=== PATIENT | male | born 1960 | race Caucasian/White ===

== ENCOUNTER 2021-12-19 10:23 | Outpatient (CLI) | payer OTHER, SELFPAY ==
--- NOTE | ~2021-12-19 | US_ITS ---
EXAMINATION: US retroperitoneal comp DATE: 12/19/2021 11:21 INDICATION: Proteinuria TECHNIQUE: Multiple grayscale and Doppler ultrasound images of the kidneys were obtained. COMPARISON: None. FINDINGS: The right kidney measures 12.7 x 5.0 x 4.9 cm. The left kidney measures 13.3 x 6.0 x 5.5 cm . The kidneys demonstrate normal parenchymal echogenicity. There is no hydronephrosis. The bladder is normal. Cholelithiasis is incidentally noted. IMPRESSION: 1. Normal kidneys without hydronephrosis. 2. Cholelithiasis. Reviewed, dictated and finalized at location B. E ASSESSOR
== END 2021-12-19 10:24 | disposition home or self-care (01) ==
LOC: CHSIMG 10:25
PROVIDERS: PCP Internal Medicine; Visit Provider Internal Medicine Nephrology
DX: R80.9 Proteinuria, unspecified (principal)
CPT/HCPCS: 76770

== ENCOUNTER 2022-01-18 09:07 | Emergency (ER) | payer OTHER, SELFPAY ==
--- NOTE | ~2022-01-18 | XR_ITS ---
EXAMINATION: XR hand LT min 3V DATE: 01/18/2022 09:30 INDICATION: Nail wound to the ulnar side of the prominent than the left hand. TECHNIQUE: Posteroanterior, oblique and lateral views of the left hand were obtained. COMPARISON: None. FINDINGS: Bone alignment is normal. No fracture. Mild polyarticular osteoarthritis at the radial aspect of the carpus and multiple interphalangeal joints with distal predominance. Small heterotopic ossicles versu s degenerative loose bodies near the ulnar styloid process and proximal aspect of the distal radiouln ar joint. No soft tissue gas or radiopaque foreign bodies. IMPRESSION: 1. Mild polyarticular osteoarthritis with typical distribution of the left hand. No acute osseous abn ormality or radiopaque foreign bodies. Reviewed, dictated and finalized at location A. NE MACHINIST IMPRESSION: 1. Mild polyarticular osteoarthritis with typical distribution of the left hand . No acute osseous abnormality or radiopaque foreign bodies.
[2022-01-18 09:15] VITALS: BP 160/98; PULSE 88; RESP 18; TEMP 36.8; O2SAT 98
[2022-01-18] MEDS: TETANUS,DIPHTHERIA,AC PERTUSSIS ADULT 0.5 ML (ADACEL) IM (09:44)
--- NOTE | 2022-01-18 09:49 | WC.ED.TRAUMA ---
HPI - Trauma General Chief Complaint: Extremity Injury, Upper Stated Complaint: L hand pain and swelling Time Seen by Provider: 01/18/22 09:10 Source: patient Mode of arrival: ambulatory Limitations: no limitations History of Present Illness HPI narrative: this is a 61-year-old gentleman with history of diabetes well during some home improvement nail went through his left palmar surface of his hand causing a puncture wound there is an area of erythema warmth mildly tender and swollen, there is no fever chills currently no drainage. MD complaint: injury Onset (ago): week(s) Loss of Consciousness: no Severity: mild Related Data Home Medications Medication Instructions Recorded Confirmed duloxetine 60 mg capsule,delayed 60 mg PO DAILY 01/18/22 01/18/22 release lisinopril 20 1 tablet PO BID 01/18/22 01/18/22 mg-hydrochlorothiazide 12.5 mg tablet metformin 500 mg tablet,extended 500 mg PO BID 01/18/22 01/18/22 release 24 hr pantoprazole 20 mg tablet,delayed 20 mg PO DAILY 01/18/22 01/18/22 release rosuvastatin 40 mg tablet 20 mg PO DAILY 01/18/22 01/18/22 verapamil 180 mg tablet,extended 180 mg PO BID 01/18/22 01/18/22 release Allergies Allergy/AdvReac Type Severity Reaction Status Date / Time Penicillins Allergy Rash Verified 01/18/22 09:25 Sulfa (Sulfonamide Allergy Rash Verified 01/18/22 09:25 Antibiotics) Review of Systems Review of Systems: All systems reviewed & are unremarkable except as noted in HPI and below PMFSH Past Medical History Medical History Diabetes mellitus Exam Const: General: healthy appearing and no acute distress Nutritional Appearance: well nourished Orientation/consciousness: patient oriented x3 Limitations: no limitations HENMT: Head: normal to inspection Eyes: Conjunctivae: conjunctivae normal Pupils: Equal, round and reactive pupils present EOM: EOMs intact bilaterally Neck: Neck: normal visual inspection Chest: Chest palpation & inspection: normal inspection of the chest Resp: Effort & Inspection: normal respiratory effort Cardio: Rate: regular rate Rhythm: regular rhythm GI: GI Palp: Yes Soft to palpation Urinary Catheter: Urinary Catheter: patent and draining Back/Spine/Pelvis: Back: no CVA tenderness Skin: General skin exam: normal color Wounds: wounds noted Neuro: General: patient oriented x3 Cranial nerves: Yes Nystagmus not present Extrem: General: normal to inspection Psych: Mental Status: mental status grossly normal Affect: normal affect Course Course Emergency Course: x-ray performed shows no acute abnormalities, patient updated with tetanus and will send antibiotics to patient's pharmacy. Vital Signs Vital signs: Vital Signs Temperature 36.8 C 01/18/22 09:15 Pulse Rate 88 01/18/22 09:15 Respiratory Rate 18 01/18/22 09:15 Blood Pressure 160/98 H 01/18/22 09:15 Pulse Oximetry 98 01/18/22 09:15 Oxygen Delivery Room Air 01/18/22 09:15 Temperature 36.8 C 01/18/22 09:15 Pulse Rate 88 01/18/22 09:15 Respiratory Rate 18 01/18/22 09:15 Blood Pressure 160/98 H 01/18/22 09:15 Pulse Oximetry 98 01/18/22 09:15 Oxygen Delivery Room Air 01/18/22 09:15 Critical Care Time Critical Care Time Critical Care Time: No Discharge Plan Discharge Clinical Impression: Puncture wound Cellulitis Qualifiers: Site of cellulitis: extremity Site of cellulitis of extremity: upper extremity Laterality: left Qualified Code(s): L03.114 - Cellulitis of left upper limb Patient Disposition: Home, Self-Care Condition: Stable Instructions: Antibiotic Form, Puncture Wound (ED), Cellulitis (ED) Additional Instructions: take medicine as prescribed, can use Tylenol or Motrin for inflammation and pain, follow-up primary care physician if symptoms persist or worsen. Prescriptions: New clindamycin HCl 300 mg capsule 300 m
[2022-01-18 10:18] VITALS: BP 158/88; PULSE 84; RESP 18; TEMP 36.9; O2SAT 98
== END 2022-01-18 10:25 | disposition home or self-care (01) ==
PROVIDERS: Emergency Provider Emergency Medicine; PCP Internal Medicine
DX: S61.432A Puncture wound without foreign body of left hand, initial encounter (principal); L03.114 Cellulitis of left upper limb; W45.0XXA Nail entering through skin, initial encounter
CPT/HCPCS: 73130; 90471; 90715; 99283

== ENCOUNTER 2022-01-27 14:53 | Day surgery (SDC) | payer OTHER, SELFPAY ==
[2022-01-27] VITALS (9 sets, daily range): BP systolic 130–157; BP diastolic 93–104; PULSE 84–95; RESP 12–18; TEMP 36.1–36.7; O2SAT 91–99; BMI 30.9
--- NOTE | 2022-01-27 14:09 | PC.NURSE ---
Report to the Outpatient Waiting Room, entrance under the green pavilion located off [facility], at time 1500 on date 01/27/22. Planned Procedure Time: 1700. Time changes happen often and if your time is changed the preop area will call you the afternoon before. - You and your visitor will be asked to self-screen and do not enter if you have any COVID symptoms. - Only one visitor is requested with a max of two and NO children visitors are allowed at this time. - The patient visitor may be requested to leave or wait in car when not with patient due to distancing restrictions. - A mask is REQUIRED within the hospital. Patients may have clear liquids (water, carbonated beverages, clear teas, apple juice) until 3 hours prior to surgery with a maximum of 20 ounces. - No food from midnight until time of surgery Take the following medications with a SIP of water the morning of surgery: ALREADY TOOK AM MEDS Medications to discontinue per physician: N/A Date to take last dose: N/A Please no make-up, nail thai, hairspray, perfume, deodorant, or body powder the day of surgery. No jewelry (including any body piercings) or valuables the day of surgery, leave them at home. Please take a shower or bath the night before, or the morning of, surgery with an antibacterial soap. Wear comfortable, loose fitting clothing. - Jewelry must be removed prior to entering the operating room. Rings and piercings that are not removed may be cut off. - The hospital will not accept responsibility for valuables. - Please leave all valuables, including medications, at home the day of surgery. If you are going home after surgery, a licensed owner operator tanker truck driver must drive you home. - NO public transportation without another adult if you receive anesthesia. - We recommend that an adult stay with you for 24 hours following discharge. - We also recommend that you do not drive, make important decision, drink alcoholic beverages, or take any drugs that were not prescribed by your health care provider for at least 24 hours after your discharge time. Follow any additional instructions given to you from your surgeon. If you or anyone in your household have experienced Covid symptoms in the past week, please notify your surgeon or the nurse liaison at the phone number below for possible testing. Telephone instructions given to PT - AMADOU DAVID and asked if any additional questions and then verbalized understanding. Patient advised to call surgeon office or pre surgery nurse liaison [phone] if any additional questions.
--- NOTE | 2022-01-27 14:20 | ECG_ITS ---
Measurements Intervals Fosters Rate: 85 P: 46 NE: 168 QRS: 2 QRSD: 98 T: 43 QT: 369 QTc: 441 Interpretive Statements SINUS RHYTHM NORMAL ECG NO PREVIOUS ECG AVAILABLE FOR COMPARISON Electronically Signed On 01-27-2022 17:21:18 ENTERTAINMENT USHER by Randy Wisdom M.D.
[2022-01-27] MEDS: LACTATED RINGERS 1,000 ML 30 ML IV CONT ×2 (15:30→19:05)
[2022-01-27 15:42] LABS: Glucose Point of Care 107 mg/dl (65-105)
--- NOTE | 2022-01-27 15:47 | P.PNAN_ITS ---
Anes - Initial Pre Proc Eval Procedure: Operation Date: 01/27/22 17:00 Proposed Procedures p Incision and Drainage Abscess Left Hand - Narciso Galloway MD Date/Time: 01/27/22 15:47 Surgeon: Narciso Galloway MD Pre Op Diagnosis: Lt Hand Abscess Patient Data Age: 61 Gender: M Height: 1.85 m Weight: 106.14 kg Allergies Allergy/AdvReac Type Severity Reaction Status Date / Time Penicillins Allergy Rash Verified 01/27/22 14:01 Sulfa (Sulfonamide Allergy Rash Verified 01/27/22 14:01 Antibiotics) Home Medications Medication Instructions Recorded Confirmed Type clindamycin HCl 300 mg capsule 300 mg PO Q6H 10 days #40 caps 01/18/22 01/27/22 Rx duloxetine 60 mg capsule,delayed 60 mg PO DAILY 01/18/22 01/27/22 History release lisinopril 20 1 tablet PO BID 01/18/22 01/27/22 History mg-hydrochlorothiazide 12.5 mg tablet metformin 500 mg tablet,extended 500 mg PO BID 01/18/22 01/27/22 History release 24 hr pantoprazole 20 mg tablet,delayed 20 mg PO DAILY 01/18/22 01/27/22 History release rosuvastatin 40 mg tablet 20 mg PO DAILY 01/18/22 01/27/22 History verapamil 180 mg tablet,extended 180 mg PO BID 01/18/22 01/27/22 History release multivitamin 1 tablet PO DAILY 01/27/22 01/27/22 History Laboratory Tests 01/27/22 15:35 POC Capillary Glucose 107 mg/dl H mg/dl (65-105) Patient hx anesthesia problems: none Family hx anesthesia problems: none Results Review: All pre-operative results and documents have been reviewed as part of the pre- operative evaluation. [facility] Past Medical History Medical History (Updated 01/27/22 @ 15:47 by Kory Cabello MD) Diabetes mellitus HTN (hypertension) Hyperlipidemia Social History Social History Smoking packs per day: 1.5 Smoking cigarettes per day: 30.0 Years smoked: 42 Smoking pack-years: 63.00 Smoking status: Former smoker Tobacco type: cigarettes Smoking end date: 02/09/15 Alcohol intake: never Substance use: never Substance use type: does not use Living arrangements: with family Spiritual care concerns: No Anes - Eval Final PreProcedure Day of Procedure 01/27/22 15:47 Patient weight: obese Heart: regular rate and rhythm Lungs: clear to auscultation Airway: Mallampati scale class II Last oral intake: >/= 8 hours ASA classification: III Emergent: yes Anesthetic plan: proceed Anesthesia type and monitoring: general LMA and standard monitoring Results Review: All pre-operative results and documents have been reviewed as part of the pre- operative evaluation. Informed Consent: The patient's anesthetic plan and its attendant risks and benefits were discussed with the patient/family/POA. Questions were solicited and answers provided to the satisfaction of the patient/family/POA.
--- NOTE | 2022-01-27 16:02 | P.HP_ITS ---
H&P: [facility] History of Present Illness Date/Time: 01/27/22 16:02 Chief Complaint: abscess of the left hand Narrative: Mr. Ugalde is 61 he is a diabetic patient of Dr. Han who sustained a puncture wound from a nail in the hypothenar eminence of left hand about two weeks ago.. He did not seek medical attention initially. The hand worsened. He was seen in the [facility] Emergency room on 01/18/2022 at which time he was started on clindamycin. Dr Han switched this to Levaquin and Doxycycline a few days later based on culture growing Strep. Referred to or 01/27/22 with lymphangitis and draining abscess of the hypothenar mass. Also tolerated Rocephin today in [place] without ill effect. Review of Systems Review of Systems: Does not have peripheral neuropathy he says. Has hyperlipidemia and hypertension. All systems reviewed & are unremarkable except as noted in HPI and below Constitutional: Constitutional: Reports as per HPI [facility] Past Medical History Medical History Diabetes mellitus HTN (hypertension) Hyperlipidemia Social History Social History Smoking packs per day: 1.5 Smoking cigarettes per day: 30.0 Years smoked: 42 Smoking pack-years: 63.00 Smoking status: Former smoker Tobacco type: cigarettes Smoking end date: 02/09/15 Alcohol intake: never Substance use: never Substance use type: does not use Living arrangements: with family Spiritual care concerns: No Meds Home Medications and Allergies Home Medications Medication Instructions Recorded Confirmed Type clindamycin HCl 300 mg capsule 300 mg PO Q6H 10 days #40 caps 01/18/22 01/27/22 Rx duloxetine 60 mg capsule,delayed 60 mg PO DAILY 01/18/22 01/27/22 History release lisinopril 20 1 tablet PO BID 01/18/22 01/27/22 History mg-hydrochlorothiazide 12.5 mg tablet metformin 500 mg tablet,extended 500 mg PO BID 01/18/22 01/27/22 History release 24 hr pantoprazole 20 mg tablet,delayed 20 mg PO DAILY 01/18/22 01/27/22 History release rosuvastatin 40 mg tablet 20 mg PO DAILY 01/18/22 01/27/22 History verapamil 180 mg tablet,extended 180 mg PO BID 01/18/22 01/27/22 History release multivitamin 1 tablet PO DAILY 01/27/22 01/27/22 History Allergies Allergy/AdvReac Type Severity Reaction Status Date / Time Penicillins Allergy Rash Verified 01/27/22 15:58 Sulfa (Sulfonamide Allergy Rash Verified 01/27/22 15:58 Antibiotics) Exam Const: General: cooperative Extrem: Other: erythema extending to mid volar forearm. Purulent drainage from the hypothenar mass. Has full unrestrained AROM of fingers. Swollen at volar wrist.. H&P: Results Labs Labs: Strep in the wound. Assessment and Plan Assessment and plan (1) Diabetes mellitus: Code(s): E11.9 - Type 2 diabetes mellitus without complications Status: Acute (2) Abscess of left hand excluding fingers and thumb: Code(s): L02.512 - Cutaneous abscess of left hand Status: Acute Assessment and Plan: I&D of left hand in the OR under general anesthesi today.
[2022-01-27 16:18] LABS: Anion Gap 8 mmol/L (8-16); Blood Urea Nitrogen 17 mg/dL (9-20); Calcium 9.5 mg/dL (8.4-10.2); Carbon Dioxide 30 mmol/L (22-30); Chloride 99 mmol/L (98-107); Estimated CRCL calculation 95 ml/min; Estimated Glomerular Filt Rate > 60; Glucose 106 mg/dL (65-110); Potassium 3.9 mmol/L (3.4-5.0); Sodium 137 mmol/L (137-145)
--- NOTE | 2022-01-27 17:14 | WPDHPUPDATE1 ---
History and Physical Update Update Date/Time: 01/27/22 17:14 History and Physical has been reviewed, including an updated exam of the patient. There are NO changes in the patient's condition. Risks, benefits, and alternatives have been discussed and questions answered. Patient agrees to proceed with procedure.
[2022-01-27 19:26] LABS: Glucose Point of Care 172 mg/dl (65-105)
[2022-01-27] MEDS: fentaNYL CITRATE INJ (*CRX) 100 MCG/2 ML VIAL 25 MCG IV PUSH ×4 (19:30→20:17)
[2022-01-27 19:53] LABS: Influenza A QL RT-PCR Negative (Negative); Influenza B QL RT-PCR Negative (Negative); SARS-CoV-2 RNA PCR Negative
--- NOTE | 2022-01-27 20:00 | P.OP_ITS ---
Procedure Note - Detailed Date of Procedure 01/28/22 Pre-op Diagnosis Lt Hand Abscess Post-op Diagnosis Same Procedure Performed Incision and drainage of superficial and deep fascial abscess of the left palm and wrist, 10 x 4 cm. with excisional debridement of nonviable skin and subcutaneous tissue. Surgeon Narciso Galloway MD Anesthesia General Indications 2-week-old infected puncture wound to the left hand in a diabetic Findings Sub fascial abscess Description of Procedure The left hand was marked in the holding area. The patient had no further questions. He was taken to the operating room where he was placed supine on the operating table and administered general endotracheal anesthesia. Left upper extremity was prepped and draped in usual fashion. Time-out was held and confirmed. The site was carefully examined for placement of incisions. The tourniquet was inflated to 250 mmHg. An ulnar paramedian incision was made 1st to unroof the areas of greatest purulence. This then led me to cross the palmar wrist crease and extend in a Chemo fashion proximally on to the distal 20% of the forearm.. Subsequent incision was extended distally along the ulnar hypothenar eminence toward the base of the 5th finger. A counter incision near the dorsal mid metacarpal was made with a hemostat and knife to irrigate and drain the most ulnar intrinsics. A looped Alan drain was secured there. Fol lowing the pus, the flexor retinaculum was opened to expose the ulnar nerve and artery.. The the common digital branches were exposed. No arteries were veins were divided. The carpal ligament was opened with the finding of no pus there. All areas of pus were exposed and irrigated. Phlegmonous tissue was excised in multiple areas. Copious irrigation was performed. The tourniquet was released and a few small mostly subcutaneous bleeders were cauterized. Some pressure was held on the wound for a few minutes until bleeding stopped. The dressing comprised Mepilex Ag pad cut to shape for the wound and gauze with Kerlix roll to cover. Estimated Blood Loss -20.0 Tourniquet Time 78 Drains Yes Packing Yes Pathology None sent Complications No immediate complications Condition Stable Disposition PACU
--- NOTE | 2022-01-27 20:35 | ADMGEN ---
This patient, Kaleb Ugalde, was admitted to [facility] Surg Room 323-01. Patient/family oriented to hospital policies and general routines including ID bracelet, bed and alarms, visiting hours, pain management, procedures, bathroom and other care routines, personal items, smoking policy, room service/diet, and visiting hours. Information on how to activate the Rapid Response Team has been discussed. Patient/Family are encouraged to report perceived risks to care and to ask questions if they do not understand what they are told or what they should do.
[2022-01-27 21:04] LABS: Basophils Percent Auto 0.2 % (0.2-1.2); Eosinophils Absolute Auto 0.1 K/mm3 (0-0.3); Eosinophils Percent Auto 0.5 % (0-4.4); Hematocrit 36.9 % (42.0-52.0); Hemoglobin 12.2 g/dL (14.0-18.0); Immature Granulocyte Absolute 0.06 K/mm3 (0.00-0.031); Immature Granulocyte Percent A 0.5 % (0-0.5); Lymphocytes Absolute Auto 1.42 K/mm3 (0.9-3.2); Lymphocytes Percent Auto 11.2 % (18.3-44.2); Mean Corpuscular HGB Conc 33.1 g/dl (32-36); Mean Corpuscular Hemoglobin 29.5 pg (26-34); Mean Corpuscular Volume 89.3 fl (80-100); Mean Platelet Volume 9.3 fl (7.4-10.4); Monocytes Absolute Auto 0.7 K/mm3 (0.1-0.6); Monocytes Percent Auto 5.6 % (2.6-8.5); Neutrophils Absolute Auto 10.4 K/mm3 (1.3-6.7); Platelet Count Result 215 k/mm3 (150-375); Red Blood Count 4.13 M/mm3 (4.6-6.20); Red Cell Distribution Width 13.8 % (11.5-14.5); White Blood Count 12.7 K/mm3 (4.5-10.0)
[2022-01-27 21:12] LABS: Hemoglobin A1C 7.7 % (<5.7)
[2022-01-27 21:17] LABS: Anion Gap 7 mmol/L (8-16); Blood Urea Nitrogen 16 mg/dL (9-20); Calcium 8.6 mg/dL (8.4-10.2); Carbon Dioxide 27 mmol/L (22-30); Chloride 102 mmol/L (98-107); Estimated CRCL calculation 86 ml/min; Estimated Glomerular Filt Rate > 60; Glucose 182 mg/dL (65-110); Potassium 4.3 mmol/L (3.4-5.0); Sodium 136 mmol/L (137-145)
[2022-01-27] MEDS: LACTATED RINGERS 1,000 ML 100 ML IV CONT (21:30)
[2022-01-27] MEDS: HYDROcodone/acetaminophen (*CRX) 5-325 MG TABLET 1 TAB PO (22:29)
[2022-01-27] MEDS: hydroCHLOROthiazide 12.5 MG CAPSULE PO (23:15)
[2022-01-27] MEDS: lisinopriL 20 MG TABLET PO (23:15)
[2022-01-27] MEDS: VERAPAMIL HCL 180 MG TABLET ER PO (23:15)
[2022-01-27 23:23] LABS: Glucose Point of Care 184 mg/dl (65-105)
[2022-01-28] MEDS: HYDROcodone/acetaminophen (*CRX) 5-325 MG TABLET 1 TAB PO ×2 (04:22→10:19)
[2022-01-28 05:50] VITALS: BP 146/85; PULSE 93; RESP 18; TEMP 36.2; O2SAT 94
[2022-01-28] MEDS: LACTATED RINGERS 1,000 ML 100 ML IV CONT (07:27)
[2022-01-28] MEDS: MORPHINE SULFATE (*CRX) 2 MG/ML INJ IV PUSH (07:30)
--- NOTE | 2022-01-28 10:16 | WPDANESPN ---
Anes - Prog Note Post-Op Date/Time: 01/28/22 10:16 Cardiovascular status: normal Respiratory status: normal Airway patency: baseline Mental status: baseline Post-Op hydration status: normal Vital Signs: Last Vital Signs Temp 97.2 F L 01/28/22 05:50 Pulse 93 01/28/22 05:50 Resp 18 01/28/22 05:50 BP 146/85 H 01/28/22 05:50 Pulse Ox 94 01/28/22 05:50 O2 Del Method Room Air 01/27/22 21:12 O2 Flow Rate 2 01/27/22 20:20 Pain Score (VAS): 0/10 I/O: Intake & Output 01/27/22 01/28/22 01/28/22 23:59 07:59 15:59 Intake Total 300 1200 472 Output Total 500 Balance 300 700 472 Laboratory Tests 01/27/22 20:58 01/27/22 20:58 01/27/22 01/27/22 01/27/22 15:35 15:42 19:09 WBC RBC Hgb Hct MCV MCH MCHC RDW Plt Count MPV Immature Gran % (Auto) Neut % (Auto) Lymph % (Auto) [place] % (Auto) Eos % (Auto) Baso % (Auto) Lymph # (Auto) [place] # (Auto) Eos # (Auto) Baso # (Auto) Abs Immat Gran (auto) Absolute Neuts (auto) Absolute Nucleated RBC Nucleated RBC % Sodium 137 Potassium 3.9 Chloride 99 Carbon Dioxide 30 Anion Gap 8 BUN 17 Creatinine 0.90 Estim Creat Clear Calc 95 Estimated GFR > 60 Glucose 106 POC Capillary Glucose 107 H Hemoglobin A1c Calcium 9.5 Influenza A (RT-PCR) Negative Influenza B (RT-PCR) Negative SARS-CoV-2 RNA (RT-PCR) Negative 01/27/22 01/27/22 01/27/22 19:23 20:58 20:58 WBC 12.7 H RBC 4.13 L Hgb 12.2 L Hct 36.9 L MCV 89.3 MCH 29.5 MCHC 33.1 RDW 13.8 Plt Count 215 MPV 9.3 Immature Gran % (Auto) 0.5 Neut % (Auto) 82.0 H Lymph % (Auto) 11.2 L Rosebud % (Auto) 5.6 Eos % (Auto) 0.5 Baso % (Auto) 0.2 Lymph # (Auto) 1.42 [place] # (Auto) 0.7 H Eos # (Auto) 0.1 Baso # (Auto) 0.0 Abs Immat Gran (auto) 0.06 H Absolute Neuts (auto) 10.4 H Absolute Nucleated RBC 0.0 Nucleated RBC % 0.0 Sodium 136 L Potassium 4.3 Chloride 102 Carbon Dioxide 27 Anion Gap 7 L BUN 16 Creatinine 1.00 Estim Creat Clear Calc 86 Estimated GFR > 60 Glucose 182 H POC Capillary Glucose 172 H Hemoglobin A1c Calcium 8.6 Influenza A (RT-PCR) Influenza B (RT-PCR) SARS-CoV-2 RNA (RT-PCR) 01/27/22 01/27/22 20:58 21:08 WBC RBC Hgb Hct MCV MCH MCHC RDW Plt Count MPV Immature Gran % (Auto) Neut % (Auto) Lymph % (Auto) Rosebud % (Auto) Eos % (Auto) Baso % (Auto) Lymph # (Auto) [place] # (Auto) Eos # (Auto) Baso # (Auto) Abs Immat Gran (auto) Absolute Neuts (auto) Absolute Nucleated RBC Nucleated RBC % Sodium Potassium Chloride Carbon Dioxide Anion Gap BUN Creatinine Estim Creat Clear Calc Estimated GFR Glucose POC Capillary Glucose 184 H Hemoglobin A1c 7.7 H Calcium Influenza A (RT-PCR) Influenza B (RT-PCR) SARS-CoV-2 RNA (RT-PCR) Post-procedural complaints: none Patient Feedback: Patient satisfied with anesthetic care.
[2022-01-28] MEDS: ROSUVASTATIN 10 MG TABLET 20 MG PO (10:20)
[2022-01-28] MEDS: metFORMIN HCL XR 500 MG TAB.SR.24H PO (10:20)
[2022-01-28] MEDS: DULoxetine HCL 60 MG CAPSULE.DR PO (10:20)
[2022-01-28] MEDS: hydroCHLOROthiazide 12.5 MG CAPSULE PO (10:20)
[2022-01-28] MEDS: VERAPAMIL HCL 180 MG TABLET ER PO (10:20)
[2022-01-28] MEDS: PANTOPRAZOLE SOD SESQUIHYDRATE 20 MG TAB PO (10:20)
[2022-01-28] MEDS: MULTIVITAMINS THERAPEUTIC TAB (*BKC) 1 TABLET PO (10:21)
--- NOTE | 2022-01-28 12:44 | WPDPN ---
Progress Note: A&P Assessment and Plan (1) Abscess of left hand excluding fingers and thumb: Code(s): L02.512 - Cutaneous abscess of left hand Status: Acute Assessment and Plan: POD 1 without complication Doing well. Will get IV dose of Cefazolin prior to discharge. Seen by wound nurse and dressing plan secured. (2) Diabetes mellitus: Code(s): E11.9 - Type 2 diabetes mellitus without complications Status: Acute Assessment and Plan: Slight elevation in sugar and Hba1c. Plan Discharge with dressing and wound care instructions. Oral antibiotics: Keflex. Fu lwlouisa Galloway in 1 week. Time Spent With Patient Time with patient: 15 - 25 minutes Subjective Date/time seen: 01/28/22 12:44 Interval history: Pt reports needing some pain meds last night He is sitting up in bed and is verbal and in no acute distress. Exam Narrative: Dressing changed. Pt reports no numbness. Has full active and passive flexion and extension of the wrist and fingers. No erythema or lymphantitis. No pus. No obviously necrotic tissue. Wound generally dry with clot in the bed. Missed post op IV antibiotics due to ordering error. Growing Strep per outside culture. Objective Data Vital Signs Vital Signs: Vital Signs - 24 hr 01/27/22 15:15 01/27/22 16:31 01/27/22 19:05 Temperature 97.0 F L 98.1 F Pulse Rate 88 84 95 Respiratory Rate 14 14 14 Blood Pressure 157/101 H 136/94 H 130/95 H Pulse Oximetry 99 96 Oxygen Delivery Room Air Simple Face Mask Oxygen Flow Rate 8 01/27/22 19:20 01/27/22 19:35 01/27/22 20:05 Temperature Pulse Rate 87 88 92 Respiratory Rate 13 12 14 Blood Pressure 133/93 H 146/94 H 144/95 H Pulse Oximetry 97 91 94 Oxygen Delivery Simple Face Mask Nasal Cannula Nasal Cannula Oxygen Flow Rate 8 2 2 01/27/22 19:50 01/27/22 20:20 01/27/22 21:12 Temperature Pulse Rate 89 93 Respiratory Rate 12 12 Blood Pressure 132/98 H 155/104 H Pulse Oximetry 94 95 Oxygen Delivery Nasal Cannula Nasal Cannula Room Air Oxygen Flow Rate 2 2 01/27/22 21:47 01/28/22 05:50 Temperature 97.1 F L 97.2 F L Pulse Rate 95 93 Respiratory Rate 18 18 Blood Pressure 151/101 H 146/85 H Pulse Oximetry 93 94 Oxygen Delivery Oxygen Flow Rate Intake/Output Intake/Output: Intake & Output 01/25/22 01/26/22 01/27/22 01/28/22 23:59 23:59 23:59 23:59 Intake Total 300 1672 Output Total 500 Balance 300 1172 Meds/Results Medications: Active Medications Generic Name Dose Route Start Last Admin Trade Name Freq PRN Reason Stop Dose Admin Acetaminophen 650 mg 01/27/22 20:29 Acetaminophen 325 Mg Tablet PO Q4H PRN Mild Pain (1-3) or Fever Hydrocodone Bitart/Acetaminophen 1 tab 01/27/22 20:29 01/28/22 10:19 Hydrocodone/Acetaminophen (*Crx) 5-325 Mg Tablet PO 1 tab Q4H PRN Administration Moderate Pain (4-6) Duloxetine HCl 60 mg 01/28/22 09:00 01/28/22 10:20 Duloxetine Hcl 60 Mg Capsule.Dr PO 60 mg DAILY RADHA Administration Hydrochlorothiazide 12.5 mg 01/27/22 21:00 01/28/22 10:20 Hydrochlorothiazide 12.5 Mg Capsule PO 12.5 mg BID RADHA Administration Lactated Ringer's 1,000 mls @ 100 mls/hr 01/27/22 20:29 01/28/22 07:27 Lr - Lactated Ringers Iv IV CONT 100 mls/hr .Q10H RADHA Administration Lisinopril 20 mg 01/27/22 20:55 01/27/22 23:15 Lisinopril 20 Mg Tablet PO 20 mg BID RADHA Administration Metformin HCl 500 mg 01/28/22 09:00 01/28/22 10:20 Metformin Hcl Xr 500 Mg Tab.Sr.24h PO 500 mg BID RADHA Administration Morphine Sulfate 2 mg 01/27/22 20:29 01/28/22 07:30 Morphine Sulfate (*Crx) 2 Mg/Ml Inj IV PUSH 2 mg Q4H PRN Administration Pain Rated 7-10 Multivitamins Therapeutic 1 tablet 01/28/22 09:00 01/28/22 10:21 Multivitamins Therapeutic Tab (*Bkc) PO 1 tablet DAILY RADHA Administration Naloxone HCl 0.1 mg 01/27/22 20:29 Naloxone Hcl 0.4 Mg/Ml V
[2022-01-28 14:00] VITALS: BP 117/88; PULSE 90; RESP 22; TEMP 35.9; O2SAT 94
--- NOTE | 2022-01-28 14:42 | PCWOUND ---
WOCN NOTE full thickness wound to the left hand. hand surgically debrided yesterday 01/27/22. wound to be debrided daily autolytically. patient to change dressing daily for 90 days. cleanse wound at dressing changes, apply strip of hydrofiber AG rope, cover with 4x4 gauze, ABD pad and cover with 4 inch roll gauze. secure with 2 inch medipore tape. changed dressing. will contact [facility] for home wound care supplies.
[2022-01-28] MEDS: ceFAZolin 2 GM/D5W 50 ML 2 GM/50 ML BAG IVPB (15:29)
== END 2022-01-28 17:55 | disposition home or self-care (01) | DRG 603 ==
LOC: ANHSURGERY 15:54 → ANH3MEDSUR 01-28 12:33
PROVIDERS: Anesthesiology; PCP Internal Medicine; Visit Provider Plastic Surgery
PROC: (CPT 11042; principal; 2022-01-27 17:00)
DX: L02.512 Cutaneous abscess of left hand (principal); B95.5 Unspecified streptococcus as the cause of diseases classified elsewhere; S61.432D Puncture wound without foreign body of left hand, subsequent encounter; W45.0XXD Nail entering through skin, subsequent encounter; E11.9 Type 2 diabetes mellitus without complications; I10 Essential (primary) hypertension; E78.5 Hyperlipidemia, unspecified; Z20.822 Contact with and (suspected) exposure to COVID-19; Z87.891 Personal history of nicotine dependence; Z79.84 Long term (current) use of oral hypoglycemic drugs
CPT/HCPCS: 11042; 11045; 36415; 80048; 82948; 83036; 85025; 87636; 93005; A9270; J0690; J2250; J2270; J2370; J2405; J2704; J3010; J7120

== ENCOUNTER 2023-01-09 10:29 | Outpatient (CLI) | payer OTHER, SELFPAY ==
--- NOTE | 2023-01-09 10:43 | ECG_ITS ---
Measurements Intervals [place] Rate: 72 P: 61 VA: 163 QRS: 10 QRSD: 104 T: 54 QT: 387 QTc: 426 Interpretive Statements SINUS RHYTHM NORMAL ECG COMPARED TO ECG 01/27/2022 16:11:41 NO SIGNIFICANT CHANGES Electronically Signed On 01-09-2023 13:45:13 SERVICE ATTENDANT by Randy Wisdom M.D.
[2023-01-09 10:47] LABS: Basophils Absolute Auto 0.03 K/mm3 (0.00-0.10); Basophils Percent Auto 0.4 % (0.0-1.0); Eosinophils Absolute Auto 0.15 K/mm3 (0.02-0.50); Hematocrit 38.1 % (40.0-54.0); Hemoglobin 12.7 g/dL (14.0-18.0); Immature Granulocyte Absolute 0.03 K/mm3 (0.00-0.00); Immature Granulocyte Percent A 0.4 % (0.0-0.0); Lymphocytes Absolute Auto 2.24 K/mm3 (1.10-4.50); Lymphocytes Percent Auto 30.3 % (18.0-42.0); Mean Corpuscular HGB Conc 33.3 g/dL (32.0-36.0); Mean Corpuscular Hemoglobin 29.5 pg (27.0-31.0); Mean Corpuscular Volume 88.6 fL (78.0-102.0); Mean Platelet Volume 10.2 fl (8.7-11.0); Monocytes Absolute Auto 0.59 K/mm3 (0.10-0.90); Neutrophils Absolute Auto 4.4 K/mm3 (1.7-7.2); Neutrophils Percent Auto 58.9 % (50.0-70.0); Platelet Count Result 170 K/mm3 (150-420); Red Cell Distribution Width 13.8 % (11.6-14.4); White Blood Count 7.4 K/mm3 (4.8-10.8)
[2023-01-09 11:21] LABS: Alanine Aminotransferase 62 U/L (16-63); Albumin Level 3.8 g/dL (3.4-5.0); Alkaline Phosphatase 71 U/L (46-116); Anion Gap 9 mmol/L (8-16); Aspartate Amino Transferase 24 U/L (15-37); Bilirubin,Total 0.5 mg/dL (0.00-1.00); Blood Urea Nitrogen 22 mg/dL (7-18); Calcium 8.7 mg/dL (8.5-10.1); Carbon Dioxide 30 mmol/L (21-32); Chloride 104 mmol/L (98-108); Cholesterol 151 mg/dL (0-200); Estimated Glomerular Filt Rate 58; Free T4 Free Thyroxine 0.86 ng/dL (0.76-1.46); Glucose 180 mg/dL (70-99); HDL Direct 41 mg/dL (40-60); LDL Cholesterol Calculated 54 mg/dL (<130); Osmolality Calculated 304 mOsm/kg (285-295); Potassium 4.2 mmol/L (3.5-5.1); Sodium 143 mmol/L (136-145); Thyroid Stimulating Hormone 2.96 uIU/mL (0.36-3.74); Total Protein 6.9 g/dL (6.4-8.2); Triglycerides 279 mg/dL (0-150)
[2023-01-09 14:11] LABS: Ferritin 232 ng/mL (26-388); Iron 56 ug/dL (65-175); Percent Iron Saturation 21 % (12-57)
[2023-01-12 08:24] LABS: Methylmalonic Acid 136 nmol/L (87-318)
== END 2023-01-09 10:30 | disposition home or self-care (01) ==
PROVIDERS: PCP Internal Medicine; Visit Provider Nurse Practitioner Family
DX: I10 Essential (primary) hypertension (principal); E78.5 Hyperlipidemia, unspecified; R01.0 Benign and innocent cardiac murmurs; E11.9 Type 2 diabetes mellitus without complications
CPT/HCPCS: 36415; 80053; 80061; 82728; 83540; 83550; 83921; 84439; 84443; 85025; 93005

== ENCOUNTER 2023-01-19 15:15 | Outpatient (CLI) | payer OTHER, SELFPAY ==
--- NOTE | 2023-01-19 15:25 | ECHO_ITS ---
Patient Info Name: Kaleb Ugalde Age: 62 years : 1960 Gender: Male Ht: 73 in Wt: 210 lbs BSA: 2.23 m2 HR: 65 bpm BP: 128 / 85 mmHg Heart Rhythm: Sinus Rhythm Technical Quality: Good Exam Date: 01/19/2023 4:16 PM Exam Location: Echo Lab Patient Status: Outpatient Admit Date: 01/19/2023 Staff Ordering Physician: Cassius, Marina Valero NP Press Set Up: Teresa Rush RDCS Attending Provider: BrigidoMarina NP Referring Physician: Cassius MARTINEZ; Exam Type: CA echo doppler color flow Study Info Indications - murmur Complete two-dimensional, color flow and Doppler transthoracic echocardiogram is performed. Summary 1. Complete two-dimensional, color flow and Doppler transthoracic echocardiogram is performed. 2. Left ventricular chamber dimension is normal. 3. Left ventricular systolic function is normal, estimated at 65-70%. 4. There is moderate concentric increased left ventricular wall thickness. 5. The left ventricular diastolic function is grade I diastolic dysfunction. 6. E/e' 16 is elevated. 7. The aortic valve is not well visualized. Cannot determine number of aortic valve leaflets. 8. There is moderate aortic valve sclerosis. 9. The mitral valve has moderately calcified leaflets and moderately calcified annulus. 10. There is mild mitral valve regurgitation. 11. No pulmonary hypertension, estimated pulmonary arterial systolic pressure is 13 mmHg. Left Ventricle E/e' 16 is elevated. Left ventricular chamber dimension is normal. Left ventricular systolic function is normal, estimated at 65-70%. There is moderate concentric increased left ventricular wall thickness. The left ventricular diastolic function is grade I diastolic dysfunction. Right Ventricle Right ventricular systolic function is normal and with normal TAPSE 3.0 cm. Right ventricular chamber dimension is normal. Left Atria Left atrial chamber dimension is normal. Right Atria Right atrial chamber dimension is normal. Aortic Valve The aortic valve is not well visualized. Cannot determine number of aortic valve leaflets. There is no aortic valve stenosis based on valve area and gradients. There is moderate aortic valve sclerosis. There is no aortic valve regurgitation. Pulmonic Valve There is no pulmonic regurgitation. Mitral Valve The mitral valve has moderately calcified leaflets and moderately calcified annulus. There is no mitral valve stenosis. There is mild mitral valve regurgitation. Tricuspid Valve There is no tricuspid valve regurgitation. No pulmonary hypertension, estimated pulmonary arterial systolic pressure is 13 mmHg. Pericardium/Pleural There is no pericardial effusion. Inferior Vena Cava Normal inferior vena cava with >50% collapse upon inspiration consistent with normal right atrial pressure, 5 mmHg. Aorta The aortic root size at the sinus of Valsalva is normal. Left Ventricular Outflow Tract Name Value Normal LVOT 2D LVOT Diameter 2.1 cm LVOT Doppler LVOT Peak Velocity 135 cm/s LVOT Peak Gradient 6 mmHg LVOT Mean Gradient 4 mmHg LVOT VTI 38 cm LVOT VT
== END 2023-01-19 15:16 | disposition home or self-care (01) ==
LOC: CHSIMG 15:17
PROVIDERS: PCP Internal Medicine; Visit Provider Nurse Practitioner Family
DX: R01.1 Cardiac murmur, unspecified (principal); I70.0 Atherosclerosis of aorta; I51.9 Heart disease, unspecified; I34.0 Nonrheumatic mitral (valve) insufficiency
CPT/HCPCS: 93306

== ENCOUNTER 2023-07-01 16:25 | Emergency (ER) | payer OTHER, SELFPAY ==
--- NOTE | ~2023-07-01 | XR_ITS ---
XR hand RT min 3V DATE: 07/01/2023 16:51 INDICATION: Fall on outstretched hand TECHNIQUE: 3 views COMPARISON: None FINDINGS: No recent fracture or dislocation, periosteal reaction or bone destruction or erosive jurado e or chondrocalcinosis. IMPRESSION: No recent fracture or dislocation is detected Reviewed, dictated and finalized at location B.
--- NOTE | ~2023-07-01 | XR_ITS ---
XR wrist RT min 3V DATE: 07/01/2023 16:51 INDICATION: Fall on outstretched hand TECHNIQUE: 3 views of right wrist COMPARISON: None FINDINGS: No recent fracture or dislocation, periosteal reaction or bone destruction, erosive change or chondrocalcinosis is detected. IMPRESSION: No recent fracture or dislocation is detected Reviewed, dictated and finalized at location B.
[2023-07-01 16:25] VITALS: BP 139/85; PULSE 96; RESP 16; TEMP 36.2; O2SAT 97
--- NOTE | 2023-07-01 16:32 | ED.UPPEXIN ---
HPI - Extremity Injury (Upper) General Chief Complaint: Extremity Injury, Upper Stated Complaint: right wrist and hand pain Time Seen by Provider: 07/01/23 16:31 Source: patient Mode of arrival: ambulatory Limitations: no limitations History of Present Illness HPI narrative: 63-year-old male fell on his right side and put out his right hand to break the fall five days ago. in the process the patient hyperextended his wrist and hyperextended his 4/5 MP joints. The patient presents with -- Right wrist pain with decreased range of motion -- right 4/5 MP joint pain which is worse on movement. -- Skin break over right 5th metacarpal head. patient is up-to-date on tetanus. No other injuries. No head injury. the patient had a prior history of left palm infection requiring surgery. complaint: injury to: right Onset (ago): day(s) ( Five days ago) Other Extremity Injury: Right: fingers, hand and wrist Other injuries: none Handedness: right Place: outdoors Severity: mild Relieving factors: immobilization Exacerbating factors: movement of extremity Context: fall Associated symptoms: denies other symptoms Treatments prior to arrival: cold therapy Related Data Home Medications Medication Instructions Recorded Confirmed duloxetine 60 mg capsule,delayed 60 mg PO DAILY 01/18/22 07/01/23 release lisinopril 20 1 tablet PO BID 01/18/22 07/01/23 mg-hydrochlorothiazide 12.5 mg tablet pantoprazole 20 mg tablet,delayed 20 mg PO DAILY 01/18/22 07/01/23 release rosuvastatin 40 mg tablet 20 mg PO DAILY 01/18/22 07/01/23 verapamil 180 mg tablet,extended 180 mg PO BID 01/18/22 07/01/23 release metformin 500 mg tablet,extended 500 mg PO DAILY 07/01/23 07/01/23 release 24 hr Allergies Allergy/AdvReac Type Severity Reaction Status Date / Time Penicillins Allergy Rash Verified 07/01/23 16:38 Sulfa (Sulfonamide Allergy Rash Verified 07/01/23 16:38 Antibiotics) Review of Systems Review of Systems: All systems reviewed & are unremarkable except as noted in HPI and below PMFSH Past Medical History Medical History Diabetes mellitus HTN (hypertension) Hyperlipidemia Social History Social History Smoking packs per day: 2.5 Smoking cigarettes per day: 50.0 Years smoked: 40 Smoking pack-years: 100.00 Smoking status: Former smoker Tobacco type: cigarettes Smoking end date: 02/09/15 Alcohol intake: never Substance use: never Substance use type: does not use Lack of Transportation: No Lack of Food: Never True Current Housing: I Have Housing Concerned About Future Housing: No Difficulty Paying Gas/Electric Bills: No Difficulty Paying for Meds: No Currently Unemployed: No Education: High School Diploma/GED Difficulty w/ Childcare or Family Care: No Living arrangements: with family Spiritual care concerns: No Exam Const: General: no acute distress Nutritional Appearance: well nourished Orientation/consciousness: patient oriented x3 Limitations: no limitations HENMT: Head: normal to inspection Ears: external ears normal Face/Nose/Sinus: Normal external nose present Face and sinus: normal facial exam Mouth: Yes Normal oral and palatal mucosa present Throat: posterior oropharynx normal Eyes: Conjunctivae: conjunctivae normal Pupils: Equal, round and reactive pupils present EOM: EOMs intact bilaterally Direct Ophthalmoscopy: no photophobia Neck: Neck: normal visual inspection, no lymphadenopathy and no meningeal signs Chest: Chest palpation & inspection: normal inspection of the chest Resp: Effort & Inspection: normal respiratory effort Auscultation: diminished lung sounds Cardio: Rate: regular rate Other: Systolic murmur in the right 2nd intercostal space suggestive of aortic stenosis. GI: GI Palp: Yes Soft to palpation Auscultati
== END 2023-07-01 17:13 | disposition home or self-care (01) ==
PROVIDERS: Emergency Provider Internal Medicine Critical Care Medicine; PCP Internal Medicine
DX: M25.531 Pain in right wrist (principal); S61.411A Laceration without foreign body of right hand, initial encounter; W18.30XA Fall on same level, unspecified, initial encounter; E11.9 Type 2 diabetes mellitus without complications; I10 Essential (primary) hypertension; E78.5 Hyperlipidemia, unspecified; Z87.891 Personal history of nicotine dependence
CPT/HCPCS: 73110; 73130; 99283

== ENCOUNTER 2024-06-30 09:54 | Outpatient (CLI) | payer MEDICARE, OTHER, SELFPAY ==
--- NOTE | ~2024-06-30 | XR_ITS ---
Clinical Indication: Cough PA and lateral views of the chest: Comparison: None Findings: The lungs are clear, without evidence of focal consolidation or pleural effusion. Cardiome diastinal silhouette is within normal limits. Bones and soft tissues are unremarkable. Impression: Normal chest. Reviewed, dictated and finalized at location . Impression: Normal chest.
== END 2024-06-30 09:55 | disposition home or self-care (01) ==
PROVIDERS: PCP Internal Medicine; Visit Provider Internal Medicine
DX: R05.9 Cough, unspecified (principal); Z87.891 Personal history of nicotine dependence
CPT/HCPCS: 71046

== ENCOUNTER 2024-10-03 19:52 | Emergency (ER) | payer MEDICARE, OTHER, SELFPAY ==
[2024-10-03 19:53] VITALS: BP 158/95; PULSE 92; RESP 18; TEMP 37.1; O2SAT 99
--- OUTSIDE RECORDS SUMMARY | 2024-10-03 20:02 | XMS_ITS | Clinical Summary ---
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 Role Phone Uday Han MD Primary Care Provider [phone] Social History Tobacco Use Types Packs/Day Years Used Date Smoking Tobacco: Never Assessed Sex and Gender Information Value Date Recorded Sex Assigned at Not on file Legal Sex Male 8:04 PM CDT Gender Identity Not on file Sexual Orientation Not on file Last Filed Vital Signs Vital Sign Reading Time Taken Comments Blood Pressure 128/68 11/28/2016 8:46 AM CDT Pulse 75 11/28/2016 8:45 AM CDT Temperature - - Respiratory Rate - - Oxygen Saturation - - Inhaled Oxygen Concentration - - Weight 99 kg (218 lb 4 oz) 11/28/2016 8:45 AM CD T Height 185.4 cm (6' 1) 11/28/2016 8:45 AM CDT Body Mass Index 28.79 11/28/2016 8:45 AM CDT Plan of Treatment Health Maintenance Due Date Last Done Comments Colorectal Cancer Screening Colonoscopy (10 Years) 1960 Hepatitis C 1977 DTaP, Tdap and Td Vaccines ( 1 - Tdap) 1978 Pneumococcal Vaccine: 50+ Ye ars (1 of 1 - PCV) 2009 Zoster Vaccines (1 of 2) 2009 COVID-19 Vaccine ( - 2023-2 5 season) 2023 RSV Immunization or 60+ Years (1 - 1-dose 75+ series) 2034 Meningococcal B Vaccine Aged Out No l onger eligible based on patient's age to complete this topic Meningococcal Vaccine Aged Out No aldair ayala eligible based on patient's age to complete this topic RSV Immunizations Under 20 Months Aged Out No longer eligible based on patient's age to complete this topic Insurance [facility] Care 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
--- NOTE | 2024-10-03 20:10 | ED.SKABFB ---
HPI - Skin/Abscess/Foreign Bdy General Chief complaint: Skin/Abscess/Foreign Body Stated complaint: bee sting Time Seen by Provider: 10/03/24 19:58 Source: patient and family Mode of arrival: ambulatory Limitations: no limitations History of Present Illness HPI narrative: 64-year-old with a history of hypertension, hyperlipidemia, diabetes here with a complains of the state to his left wrist sustained around 3:00 p.m.. Denies having any shortness of breath or chest pain. Complains of mild swelling and itching in the area MD complaint: rash and insect bite/sting Onset (ago): hour(s) (4) Location: LUE ( wrist) Severity: mild Quality: burning Pain Consistency: constant Relieving factors: none Exacerbating factors: none Context: none Associated symptoms: denies other symptoms Treatments prior to arrival: none Related Data Home Medications ?Medication ?Instructions ?Recorded ?Confirmed ?Last Taken ?Type duloxetine 60 mg capsule,delayed 60 mg PO DAILY 01/18/22 10/03/24 01/27/22 08:00 History release rosuvastatin 40 mg tablet 20 mg PO DAILY 01/18/22 10/03/24 01/27/22 08:00 History verapamil 180 mg tablet,extended 180 mg PO BID 01/18/22 10/03/24 01/27/22 08:00 History release metformin 500 mg tablet,extended 500 mg PO DAILY 07/01/23 10/03/24 Unknown History release 24 hr cyanocobalamin (B12)-cobamamide gina sublingual 10/03/24 Unknown History 5,000 mcg-100 mcg sublingual lozenge (B12) losartan 100 tablet 10/03/24 Unknown History mg-hydrochlorothiazide 25 mg tablet multivitamin with minerals-folic tablet PO 10/03/24 Unknown History acid 400 mcg-lycopene 370 mcg tablet (One-A-Day Men's 50 Plus) Allergies Allergy/AdvReac Type Severity Reaction Status Date / Time Penicillins Allergy Rash Verified 10/03/24 20:01 Sulfa (Sulfonamide Allergy Rash Verified 10/03/24 20:01 Antibiotics) Review of Systems Review of Systems: All systems reviewed & are unremarkable except as noted in HPI and below Constitutional: Constitutional: Reports no additional constitutional complaints Eyes: Eyes: Reports no additional eye complaints ENT: Reports system reviewed and no additional complaints, except as documented Cardiovascular: Cardiovascular: Reports no additional cardiovascular complaints Respiratory: Respiratory: Reports no additional respiratory complaints Gastrointestinal: Gastrointestinal: Reports no additional gastrointestinal complaints Musculoskeletal: Musculoskeletal: Reports no additional musculoskeletal complaints Neurologic: Reports system reviewed and no additional complaints, except as documented Endocrine: Endocrine: Reports no additional endocrine complaints PMFSH Past Medical History Medical History Hyperlipidemia HTN (hypertension) Diabetes mellitus Social History Social History Smoking packs per day: 2.5 Smoking cigarettes per day: 50.0 Years smoked: 40 Smoking pack-years: 100.00 Smoking status: Former smoker Tobacco type: cigarettes Smoking end date: 02/09/15 Alcohol intake: never Substance use: never Substance use type: does not use Lack of Transportation: No Lack of Food: Never True Current Housing: I Have Housing Concerned About Future Housing: No Difficulty Paying Gas/Electric Bills: No Difficulty Paying for Meds: No Currently Unemployed: No Education: High School Diploma/GED Difficulty w/ Childcare or Family Care: No Living arrangements: with family Spiritual care concerns: No Exam Narrative: GENERAL: Well-appearing, well-nourished, and in no acute distress. HEAD: Normocephalic, atraumatic. EYES: PERRLA and EOMI. ENT: Nares clear, no rhinorrhea or epistaxis. Mucous membranes moist. NECK: Supple. CHEST: Clear to auscultation. No respiratory distress. HEART: Regular rate and rhythm. murmur heard. Normal peripheral pulses EXTREMITIES: Normal range of motion. No edema. SKIN: Warm, dry, no rash. small raised area on the left wrist . NEURO: No focal deficits. Alert and oriented x3. PSYCH: Normal mood and affect. Discharge Plan Discharge Clinical Impression: Local reaction to bee sting Patient Disposition: Home Condition: Stable Instructions: Antibiotic Form, Insect Bite or Sting (ED) Additional Instructions: Can take Benadryl for itiching , steroids as prescribed. Patient Language: Polish Prescriptions: New prednisone 20 mg tablet 20 mg PO BID Qty: 10 0RF No Action metformin 500 mg tablet extended release 24 hr 500 mg PO DAILY verapamil 180 mg tablet extended release 180 mg PO BID rosuvastatin 40 mg tablet 20 mg PO DAILY duloxetine 60 mg capsule,delayed release(DR/EC) 60 mg PO DAILY losartan-hydrochlorothiazide 100-25 mg tablet B12 5,000-100 mcg lozenge sublingual One-A-Day Men's 50 Plus 400-370 mcg tablet PO Follow-up/Referrals: Uday Han MD [Primary Care Provider, Internal Medicine] Time of Disposition: 20:19
== END 2024-10-03 20:35 | disposition home or self-care (01) ==
PROVIDERS: Emergency Provider Family Medicine; PCP Internal Medicine
DX: T63.441A Toxic effect of venom of bees, accidental (unintentional), initial encounter (principal); L25.8 Unspecified contact dermatitis due to other agents; I10 Essential (primary) hypertension; E78.5 Hyperlipidemia, unspecified; E11.9 Type 2 diabetes mellitus without complications; Z79.899 Other long term (current) drug therapy; Z79.84 Long term (current) use of oral hypoglycemic drugs; Z87.891 Personal history of nicotine dependence
CPT/HCPCS: 96372; 99283; J1200; J7512